=== PATIENT | male | born 1975 | race Caucasian/White ===

== ENCOUNTER 2017-01-14 12:41 | Observation (INO) | payer OTHER ==
[~2017-01-14] VITALS: Ht 175.3 cm; Wt 93.5 kg
[2017-01-14 12:43] VITALS: BP 138/87; PULSE 82; RESP 20; O2SAT 97
[2017-01-14 13:06] VITALS: TEMP 97.9
[2017-01-14] MEDS ORDERED: SODIUM CHLORIDE 0.9% FLUSH 10 ML FLUSH IVF PRN (13:15)
--- NOTE | 2017-01-14 13:17 | PD ---
HPI Chief Complaint: Chest Pain Time Seen by Provider: 13:05 Travel History International Travel<30 days: No Contact w/Intl Traveler<30days: No Traveled to known affect area: No History of Present Illness HPI This is a 41-year-old male with history of hyperlipidemia presents for evaluation of chest pain. He reports that 1 hour prior to arrival he was cleaning up debris in the yard when he began developing some chest pain. He describes it as a sharp/aching pain in the left side of his chest as well as generalized chest tightness which is constant since then, no obvious aggravating or relieving factors. No pleuritic nature in regards to the pain. On the way here he took an [id number] Goody's medication with aspirin component. He endorses some degree of mild dyspnea associated with the pain. He endorses a slight nonproductive cough over the past week which she does not feel is related to this current pain. He has never had this sort of pain before. He denies any diaphoresis, nausea or vomiting, [place] pain, flank pain , fevers or chills, recent travel or recent surgery, calf swelling. No history of coronary artery disease personally. He does endorse a strong family history he reports his mother had an NJ in her 30s, his father had an NJ in his 50s. He has no other complaints. [facility] Past Medical History High Cholesterol: Yes Social History Alcohol Use: No Tobacco Use: No Allergies-Medications (Allergen,Severity, Reaction): Coded Allergies: No Known Allergies (Unverified , 01/14/17) Review of Systems Except as stated in HPI: all other systems reviewed are Neg Physical Exam Narrative GENERAL: Well-developed well-nourished male in no acute distress resting comfortably in hospital bed. Vital signs reviewed. SKIN: Warm and dry. HEAD: Atraumatic. Normocephalic. EYES: Pupils equal and round. No scleral icterus. No injection or drainage. ENT: No nasal bleeding or discharge. Mucous membranes pink and moist. NECK: Trachea midline. No JVD. CARDIOVASCULAR: Regular rate and rhythm. No murmur appreciated. RESPIRATORY: No accessory muscle use. Clear to auscultation. Breath sounds equal bilaterally. GASTROINTESTINAL: Abdomen soft, non-tender, nondistended. Hepatic and splenic margins not palpable. MUSCULOSKELETAL: No obvious deformities. No edema. Negative Homans. NEUROLOGICAL: Awake and alert. No obvious cranial nerve deficits. Motor grossly within normal limits. Normal speech. PSYCHIATRIC: Appropriate mood and affect; insight and judgment normal. Data Data Last Documented VS Vital Signs Date Time Temp Pulse Resp B/P Pulse Ox O2 Delivery O2 Flow Rate FiO2 01/14/17 13:30 75 18 99 Room Air 01/14/17 13:06 97.9 01/14/17 12:43 138/87 Orders Electrocardiogram (01/14/17 ) Basic Metabolic Panel (Bmp) (01/14/17 13:12) Ckmb (Isoenzyme) Profile (01/14/17 13:12) Complete Blood Count With Diff (01/14/17 13:12) Magnesium (Mg) (01/14/17 13:12) Troponin I (01/14/17 13:12) Chest, Single Ap (01/14/17 13:12) Ecg Monitoring (01/14/17 13:12) Bilateral Bp Monitoring (01/14/17 13:12) Iv Access Insert/Monitor (01/14/17 13:12) Oximetry (01/14/17 13:12) Oxygen Administration (01/14/17 13:12) Sodium Chloride 0.9% Flush (Ns Flush) (01/14/17 13:15) Nitroglycerin Sl (Nitrostat Sl) (01/14/17 13:15) Admit Order (Ed Use Only) (01/14/17 14:40) Acetaminophen (Tylenol) (01/14/17 14:45) Labs Laboratory Tests Test 01/14/17 13:24 White Blood Count 9.1 TH/MM3 Red Blood Count 4.75 MIL/MM3 Hemoglobin 13.6 GM/DL Hematocrit 40.4 % Mean Corpuscular Volume 85.1 FL Mean Corpuscular Hemoglobin 28.7 PG Mean Corpuscular Hemoglobin 33.7 % Concent Red Cell Distribution Width 13.0 % Platelet Count 267 TH/MM3 Mean Platelet Volume 9.6 FL Neutrophils (%) (Auto) 66.4 % Lymphocytes (%) (Auto) 22.8 % Monocytes (%) (Auto) 8.0 % Eosinophils (%) (Auto) 2.1 % Basophils (%) (Auto) 0.7 % Neutrophils # (Auto) 6.0 TH/MM3 Lymphocytes # (Auto) 2.1 TH/MM3 Monocytes # (Auto) 0.7 TH/MM3 Eosinophils # (Auto) 0.2 TH/MM3 Basophils # (Auto) 0.1 TH/MM3 CBC Comment DIFF FINAL Differential Comment Sodium Level 138 MEQ/L Potassium Level 4.1 MEQ/L Chloride Level 104 MEQ/L Carbon Dioxide Level 25.1 MEQ/L Anion Gap 9 MEQ/L Blood Urea Nitrogen 13 MG/DL Creatinine 1.01 MG/DL Estimat Glomerular Filtration 81 ML/MIN Rate Random Glucose 87 MG/DL Calcium Level 9.1 MG/DL Magnesium Level 2.1 MG/DL Total Creatine Kinase 91 U/L Troponin I LESS THAN 0.02 NG/ML MDM Medical Decision Making Medical Screen Exam Complete: Yes Emergency Medical Condition: Yes Medical Record Reviewed: Yes Interpretation(s) EKG sinus rhythm Differential Diagnosis Acute coronary syndrome, costochondritis, bronchitis, pneumonia, pneumothorax, pericarditis, myocarditis, pericardial effusion, pulmonary embolism Narrative Course 41-year-old male with history of hyperlipidemia presents with 1 hour of chest pain which began while clearing up debris in the yard. Twelve-lead EKG was obtained in triage. The patient placed on ECG monitoring and pulse oximetry. Plans for chest x-ray, basic lab work. He will be given nitroglycerin. Lab work and imaging studies have been reviewed and found to be unremarkable. Discussed with my attending who agrees with plan of care. The plan is to admit this patient into the chest pain center for serial cardiac enzymes and rule out purposes. He is agreeable. Upon reexamination the chest pain has subsided however the nitroglycerin caused a headache. Tylenol will be administered. Procedures EKG Prior to Arrival: Yes Diagnosis Primary Impression: Chest pain Qualified Code: R07.9 - Chest pain, unspecified type Admitting Information Admitting Physician Requests: Ran Reardon Jan 14, 2017 13:17
[2017-01-14] MEDS: NITROGLYCERIN 0.4 MG SL 25 TABS/BTL SL SCH ×3 (13:20→13:30)
[2017-01-14 13:29] VITALS: O2SAT 99
--- NOTE | 2017-01-14 13:55 | RADRPT ---
EXAM DATE/TIME: 01/14/2017 13:10 [place] COMPARISON: No previous studies available for comparison. INDICATIONS : Chest pain. Short of breath. MEDICAL HISTORY : None. SURGICAL HISTORY : None. ENCOUNTER: Initial ACUITY: 1 day PAIN SCORE: 4/10 LOCATION: Left chest FINDINGS: A single view of the chest demonstrates the lungs to be symmetrically aerated without evidence of mas s, infiltrate or effusion. The cardiomediastinal contours are unremarkable. Osseous structures are intact. CONCLUSION: 1. No acute cardiopulmonary disease. Bean Stevens MD on January 14, 2017 at 13:30 Board Certified Radiologist. This report was verified electronically.
[2017-01-14 14:07] LABS: BASOPHIL # 0.1 TH/MM3 (0-0.2); BASOPHIL % 0.7 % (0.0-2.0); EOSINOPHIL # 0.2 TH/MM3 (0-0.4); EOSINOPHIL % 2.1 % (0.0-4.0); HEMATOCRIT 40.4 % (39.0-51.0); HEMO FLAGS DIFF FINAL; LYMPH % 22.8 % (9.0-44.0); LYMPHOCYTE # 2.1 TH/MM3 (1.0-4.8); MEAN CELL VOLUME 85.1 FL (80.0-100.0); MEAN CORPUSCULAR HEMOGLOBIN 28.7 PG (27.0-34.0); MEAN CORPUSCULAR HGB CONC 33.7 % (32.0-36.0); NEUT % 66.4 % (16.0-70.0); PLATELET COUNT 267 TH/MM3 (150-450); RED BLOOD COUNT 4.75 MIL/MM3 (4.50-5.90); WHITE BLOOD COUNT 9.1 TH/MM3 (4.0-11.0)
[2017-01-14 14:21] LABS: ANION GAP 9 MEQ/L (5-15); BICARBONATE 25.1 MEQ/L (21.0-32.0); BLOOD UREA NITROGEN 13 MG/DL (7-18); CHLORIDE 104 MEQ/L (98-107); GLOMERULAR FILTRATION RATE 81 ML/MIN (>89); MAGNESIUM 2.1 MG/DL (1.5-2.5); POTASSIUM 4.1 MEQ/L (3.5-5.1); SODIUM (NA) 138 MEQ/L (136-145)
[2017-01-14 14:27] LABS: CREATINE KINASE 91 U/L (39-308)
[2017-01-14] MEDS ORDERED: ACETAMINOPHEN 325 MG TAB PO ONE (14:45)
--- NOTE | 2017-01-14 15:09 | EKG ---
Date Performed: 01/14/2017 Time Performed: 12:58:00 PTAGE: 41 years EKG: Sinus rhythm NORMAL ECG NO PREVIOUS TRACING DOCTOR: Filipe Ware Interpretating Date/Time 01/14/2017 15:08:53
--- NOTE | 2017-01-14 15:52 | HHI.HP ---
[facility] Primary Care Physician Marcel Pearson M.D. Chief Complaint Chest pain History of Present Illness This is a 41-year-old male that presents to the ED via private vehicle complaining of a tightness in his chest with shortness of breath that began little before noon. No nausea or diaphoresis. 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 He stated that the activity was not that strenuous. He took a Goody' s powder and stay that it started to feel better. Upon arrival to the ED discomfort was improving. He was given subluminal nitroglycerin which helped his symptoms but then it made him nauseous. Prior that he had no nausea. Denies personal history of CAD but states that both parents have CAD. He states that his mother had her first GA at age 32. His father had an GA in his 50s. Patient has history of hyperlipidemia but stopped taking medications quite some time ago. Patient states that he was forgetting to take it most of the time. He has not discussed this recently with his primary care physician. He is a nonsmoker. Review of Systems General: Patient denies fevers, chills recent, and recent travel HEENT: Patient denies headache, sore throat, difficulty swallowing. Cardiovascular: Has the chest discomfort as mentioned above. Denies sensation of heart beating rapidly or irregularly. No syncope. Denies diaphoresis. Respiratory: He was short of breath. Denies inspirational chest discomfort. Denies coughing wheezing or hemoptysis. GI: Patient denies nausea during the discomfort but became nauseous after getting sublingual nitroglycerin in the ED. Denies vomiting, diarrhea, abdominal pain, bloody stools. Musculoskeletal: Patient denies joint pain or edema. Denies calf pain or edema. Neurovascular: Patient denies numbness, tingling, weakness in extremities. Denies headache. Endocrine: Denies polyuria and polydipsia. Hematologic: Denies easy bruising. Skin: Denies rash or itching. Past Family Social History Allergies: Coded Allergies: No Known Allergies (Unverified , 01/14/17) Past Medical History Hyperlipidemia but patient stopped taking medication for that quite some time ago. Denies hypertension, diabetes, and known CAD. Past Surgical History Noncontributory. Active Ordered Medications Current Medications Medications (Trade) Dose Ordered Sig/Brandy Route Start Time Stop Time Status Last Admin (NS Flush) 2 ml UNSCH PRN IVF 01/14/17 13:15 Family History His mother had MIs and the first was at age 32. His father had GA in his 50s. Social History Patient is a nonsmoker. Denies illicit drugs. Has occasional alcohol. He is . Physical Exam Vital Signs Vital Signs Date Time Temp Pulse Resp B/P Pulse Ox O2 Delivery O2 Flow Rate FiO2 01/14/17 13:30 75 18 99 Room Air 01/14/17 13:29 99 Room Air 01/14/17 13:29 99 Room Air 01/14/17 13:06 97.9 01/14/17 12:43 82 20 138/87 97 Room Air Physical Exam GENERAL: This is a well-nourished, well-developed patient, in no apparent distress. Patient speaks in clear complete sentences. Patient is pleasant. HEENT: Head is atraumatic and normocephalic. Neck is supple without lymphadenopathy and trachea is midline. No JVD or carotid bruits. CARDIOVASCULAR: Regular rate and rhythm without murmurs, gallops, or rubs. RESPIRATORY: Clear to auscultation. Breath sounds equal bilaterally. No wheezes , rales, or rhonchi. Chest wall is nontender. No use of accessory muscles. GASTROINTESTINAL: Abdomen is nontender, nondistended. Abdomen soft. No obvious pulsatile mass or bruit. No CVA tenderness. Strong femoral pulses bilaterally. Normal bowel sounds in all quadrants. MUSCULOSKELETAL: Patient is moving upper and lower extremities freely. No calf tenderness or edema, no Homans sign. Strong pulses in upper and lower extremities. NEUROLOGICAL: Patient is alert and oriented. Cranial nerves 2-12 are grossly intact. No focal deficits and speech is clear. SKIN: No rash and turgor is normal. Laboratory Laboratory Tests Test 01/14/17 13:24 White Blood Count 9.1 Red Blood Count 4.75 Hemoglobin 13.6 Hematocrit 40.4 Mean Corpuscular Volume 85.1 Mean Corpuscular Hemoglobin 28.7 Mean Corpuscular Hemoglobin 33.7 Concent Red Cell Distribution Width 13.0 Platelet Count 267 Mean Platelet Volume 9.6 Neutrophils (%) (Auto) 66.4 Lymphocytes (%) (Auto) 22.8 Monocytes (%) (Auto) 8.0 Eosinophils (%) (Auto) 2.1 Basophils (%) (Auto) 0.7 Neutrophils # (Auto) 6.0 Lymphocytes # (Auto) 2.1 Monocytes # (Auto) 0.7 Eosinophils # (Auto) 0.2 Basophils # (Auto) 0.1 CBC Comment DIFF FINAL Differential Comment Sodium Level 138 Potassium Level 4.1 Chloride Level 104 Carbon Dioxide Level 25.1 Anion Gap 9 Blood Urea Nitrogen 13 Creatinine 1.01 Estimat Glomerular Filtration 81 Rate Random Glucose 87 Calcium Level 9.1 Magnesium Level 2.1 Total Creatine Kinase 91 Troponin I LESS THAN 0.02 Result Diagram: 01/14/17 1324 01/14/17 1324 Imaging Last 24 hours Impressions Chest X-Ray 01/14/17 1312 Signed Impressions: Service Date/Time: Saturday, January 14, 2017 13:10 - CONCLUSION: 1. No acute cardiopulmonary disease. Bean Stevens MD Course Initial EKG is sinus rhythm without significant ST segment depressions or elevations. Assessment and Plan Assessment and Plan * Chest pain: Patient's initial EKG has no ST changes. Troponin is normal. He has been seen by Dr. Dileep Monet of cardiology in the chest pain center and will undergo a Renaldo protocol ETT. He'll be discharged home if the stress test is nonischemic. * Hyperlipidemia: Patient will need to follow this with his primary care physician to restart therapy and monitor his liver function. Patient is stable at this time. He is agreeable to this plan. Dennis Warner Jan 14, 2017 15:52
--- NOTE | 2017-01-14 16:21 | HHI.DCPOC ---
Discharge Care Plan Diagnosis: (1) Chest pain (2) Hyperlipidemia Goals to Promote Your Health * To prevent worsening of your condition and complications * To maintain your health at the optimal level Directions to Meet Your Goals Take your medications as prescribed Follow your dietary instruction Follow activity as directed Keep your appointments as scheduled Take your immunizations and boosters as scheduled If your symptoms worsen call your PCP, if no PCP go to Urgent Care Center or Emergency Room Smoking is Dangerous to Your Health. Avoid second hand smoke Call the 24-hour hour crisis hotline for domestic abuse at Dennis Warner Jan 14, 2017 16:21
--- NOTE | 2017-01-15 11:19 | TR ---
Date Performed: 01/14/2017 Time Performed: 15:53:40 DOCTOR: Fatoumata Neal DRUG LIST: CLINICAL HISTORY: REASON FOR TEST: Chest pain REASON FOR ENDING: OBSERVATION: CONCLUSION: DEEPAK PROTOCOL. TIGHTNESS PERSISTED BUT DID NOT WORSEN. TEST WAS STOPPED AFTER EXCEE DING GOAL HR SECONDARY TO SOB AND LEG FATIGUE.Maximum MM=542 Max HR Achieved=90.0% Maximum JP=240/80 Total Exercise Time=9:43 COMMENTS:
== END 2017-01-14 16:37 | disposition home or self-care (01) ==
LOC: NEPD 12:41 → NEDA 14:41
PROVIDERS: ADMIT Internal Medicine Cardiovascular Disease; ATTEND Internal Medicine Cardiovascular Disease
DX: R07.89 Other chest pain (principal); E78.5 Hyperlipidemia, unspecified; R06.02 Shortness of breath; R51 Headache; E78.00 Pure hypercholesterolemia, unspecified; Z82.49 Family history of ischemic heart disease and other diseases of the circulatory system
CPT/HCPCS: 71010; 80048; 82550; 83735; 84484; 85025; 93005; 93017; 99285; G0378